=== PATIENT | male | born 1975 | race Hispanic/Latino ===

== ENCOUNTER → 2023-11-01 | Outpatient (CLI) | payer OTHER | END | disposition home or self-care (01) | LOC: RAH 09:31 | PROVIDERS: ATTEND Internal Medicine | DX: Z13.6 Encounter for screening for cardiovascular disorders (principal) | CPT/HCPCS: 75571 ==

== ENCOUNTER 2025-05-20 01:56 | Emergency (ER) | payer OTHER ==
[~2025-05-20] VITALS: Ht 177.8 cm; Wt 86.2 kg
--- NOTE | 2025-05-20 02:27 | NUR ---
PT CARE ASSUMED AT THIS TIME
[2025-05-20] MEDS: ORPHENADRINE 60MG/2ML IM ONE (03:21)
--- NOTE | 2025-05-20 04:15 | HMCIMG ---
EXAM: CR Right Shoulder, 2 views. CLINICAL HISTORY: Pain. Trauma. COMPARISON: None. FINDINGS: No acute fracture or aggressive appearing osseous lesion. Unremarkable glenohumeral joint. Mild acromioclavicular joint osteoarthritis. Calcific foci at the supraspinatus and infraspinatus tendon insertions. The soft tissues are unremarkable. IMPRESSION: No acute bony changes. Mild acromioclavicular joint osteoarthritis. Calcific foci at the supraspinatus and infraspinatus tendon insertions, suggestive of calcific tendinitis. /[place]
--- NOTE | 2025-05-20 04:18 | ERN ---
General Chief Complaint: Shoulder Injury/Pain Stated Complaint: RT SHOULDER INJURY Time Seen by MD: 02:02 Source: patient History of Present Illness Initial Comments Patient is a 50-year-old male with diabetes who had a metal pole slammed into his right humeral head at work two days ago. The patient has been trying to control the symptoms with ibuprofen and he is finding that the ibuprofen just is not strong enough. He comes in for pain control and also an evaluation of his injury. Timing/Duration: 24 hours Allergies: Coded Allergies: No Known Allergies (Unverified Allergy, Unknown, 05/20/25) Past Medical History Past Medical History: Diabetes-Type II Past Surgical History: None ROS Dictation Review of systems is negative except for his right shoulder pain. Physical Exam Extremities Comment Patient has pinpoint tenderness on the lateral surface of his right upper arm just below the humeral head. He has an extremely difficult time moving his uppe r arm. There was also an area of redness in his lateral upper arm. There is exquisite pinpoint tenderness on the lateral humerus just below the humeral head. Also patient can not abduct his right arm without experiencing excruciating pain MDM MDM: Differential diagnosis: Supraspinatus tendon rupture. Broken bone. Bone chip. Dislocation. Bone bruise. Rationale: Tests considered and ordered secondary to shared decision making include: Previous outside records reviewed: Old ER visits. Risk of complication and/or morbidity or mortality of patient management: None Medications-Per medication reconciliation Need for hospitalization: Patient does meet criteria for hospitalization. Need for emergency major/minor surgery: No There are no social concerns with this patient. Prescription drug management Prescriptions will include symptomatic care Patient's prior external medical records from other ER visits were reviewed by me as indicated. Prior testing and results from previous visits were reviewed. Prior tests were taken into account with medical decision making and resource utilization, independent historian/historians were used to obtain complete medical history. I independently interpreted the test that were performed, results were reviewed by me and considered findings on radiology if ordered. Plain films of the patient's humerus do show what appear to be some bone chips right off the humeral head which is in the area of patient's maximal tenderness. I have ordered a CT scan. CT scan confirms a bone chip possibly off the greater tuberosity of the humeral head. Patient's pain is better with the Toradol injection. I will discharge the patient with a prescription for Toradol. He needs to follow up with his primary care physician in his company physician who will refer him to a orthopedic surgeon to evaluate the bone chip. ED Course Orders Procedure Category Date Status Time Shoulder Comp 2+Vws Rt RAD 05/20/25 Resulted 02:15 Humerus 2+Vws Rt RAD 05/20/25 Resulted 02:15 Orphenadrine Citrate PHA 05/20/25 Complete (Norflex) 02:30 Ketorolac 60mg/2ml PHA 05/20/25 Complete (Toradol 60mg/2ml) 03:00 Ct Upper Ext W/O CT 05/20/25 Taken Contrast 03:27 Current Medications Medications (Trade) Dose Ordered Sig/Tommy Route PRN Reason Start Time Stop Time Status Last Admin Dose Admin Ketorolac Tromethamine (toRADol 60MG/ 2ML) 60 mg ONCE ONCE IM 05/20/25 03:00 05/20/25 03:01 DC 05/20/25 03:21 Orphenadrine Citrate (Norflex) 60 mg ONCE ONCE IM 05/20/25 02:30 05/20/25 02:32 DC 05/20/25 03:21 Vital Signs Date Time Temp Pulse Resp B/P (MAP) Pulse Ox O2 Delivery O2 Flow Rate FiO2 05/20/25 03:57 73 16 154/89 97 Room Air* 0 05/20/25 02:30 97.5 75 15 158/100 97 Room Air* 0 05/20/25 01:58 97.5 75 16 159/90 98 Room Air DX & DISP Disposition: Discharge Departure Impression: Primary Impression: Humerus head fracture Condition: Stable Scripts Ketorolac Tromethamine (Toradol) 10 Mg Tab 1 TAB PO Q6HPRN PRN for pain for 5 Days, #20 TAB 0 Refills Prov: MARY MCCRARY MD 05/20/25 Additional Instructions: You have a chip fracture off your right humeral head. I can not tell from the CT scan if it is the result of the tendon avulsion. That would require an MRI scan. I recommend you see your company doctor for further evaluation. I have sent a prescription for a stronger pain medicine to your pharmacy. We will also give you an excuse for work. Referrals: ADALGISA COBOS MD (PCP) AMRY MCCRARY MD May 20, 2025 04:18
--- NOTE | 2025-05-20 04:19 | HMCIMG ---
EXAM: CR Right Humerus, 2 views. CLINICAL HISTORY: Pain. COMPARISON: None provided. FINDINGS: No acute fracture or aggressive appearing osseous lesion. Unremarkable joint spaces. Calcific foci at the supraspinatus and infraspinatus tendon insertions. The soft tissues are unremarkable. IMPRESSION: 1. No acute bony changes. 2. Calcific foci at the supraspinatus and infraspinatus tendon insertions, suggestive of calcific tendinitis. /[place]
[2025-05-20] MEDS ORDERED: KETO10 PO (04:50)
--- NOTE | 2025-05-20 05:04 | HMCIMG ---
EXAM: CT Right shoulder joint without contrast. CLINICAL HISTORY: Pain. TECHNIQUE: Thin collimated axial CT images through the right shoulder joint were obtained with axial reformatted images also submitted. CONTRAST: None. COMPARISON: X-ray right shoulder of the same date. FINDINGS: The visualized bones are normal in cortical outline. No acute fracture. No aggressive osseous or lytic lesion. Mild acromioclavicular joint osteoarthritis. Unremarkable gleno-humeral joint. Focal calcification measuring up to 2 cm in the craniocaudal dimension, adjacent to the greater tuberosity at the supraspinatus and infraspinatus tendon insertions. Visualized muscles are normal in bulk and density. No soft tissue mass, hematoma or collection. The visualized right lung field shows mild centriacinar emphysema. IMPRESSION: 1. No acute osseous abnormality. 2. 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 Recommend MRI right shoulder if the clinical concern persists. 3. Mild acromioclavicular joint osteoarthritis. 4. Mild centriacinar emphysema in the visualized right lung. Similar findings from the x-ray right shoulder of the same date. /[place]
--- NOTE | 2025-05-20 05:05 | NUR ---
PER DIRECTED BY ARACELY MCCRARY SLING WAS PLACED ON PT FOR IMMOBILIZATION.
[2025-05-20 05:07] VITALS: BP 141/89; PULSE 74; RESP 15; TEMP 97.9; O2SAT 98
--- NOTE | 2025-05-20 05:10 | NUR ---
PER ED MD MCCRARY PT IS CLEAR FOR DISCHARGE
== END 2025-05-20 05:18 | disposition home or self-care (01) ==
LOC: EDH 01:56
DX: S42.291A Other displaced fracture of upper end of right humerus, initial encounter for closed fracture (principal); E11.9 Type 2 diabetes mellitus without complications; W22.8XXA Striking against or struck by other objects, initial encounter; Y93.89 Activity, other specified; Y92.89 Other specified places as the place of occurrence of the external cause; Y99.8 Other external cause status
CPT/HCPCS: 99285; 73200; 73060; 73030; 96372 ×2; J1885; J2360